=== PATIENT | male | born 1985 | race Hispanic/Latino ===

== ENCOUNTER 2020-10-06 19:52 | Emergency (ER) | payer SELFPAY ==
[~2020-10-06] VITALS: Ht 167.6 cm; Wt 93.0 kg
[2020-10-06] MEDS ORDERED: ACETAMINOPHEN 325 MG TAB PO ONE (20:30)
[2020-10-06] MEDS ORDERED: ONDANSETRON HCL INJ 2MG/ML 2ML 2 MG/ML VIAL IV STA (20:30)
[2020-10-06] MEDS ORDERED: ONDANSETRON HCL 4 MG ORAL DISINTEGRATING TAB ONE (20:46)
[2020-10-06] MEDS ORDERED: CASIRIVIMAB/IMDEVIMAB 600 MG INJ IV ONE (21:45)
[2020-10-06] MEDS ORDERED: CASIRIVIMAB/IMDEVIMAB 600 MG in SODIUM CHLORIDE 0.9% 100 ML IV ONE (21:45)
[2020-10-06 23:49] VITALS: BP 117/87
== END 2020-10-07 01:19 | disposition home or self-care (01) ==
LOC: ER 20:32
DX: U07.1 COVID-19 (principal); R06.00 Dyspnea, unspecified
CPT/HCPCS: 99283; J7050; Q0162; U0002